=== PATIENT | female | born 1985 | race Caucasian/White ===

== ENCOUNTER 2016-07-27 15:51 | Emergency (ER) | payer OTHER ==
[2016-07-27 16:49] VITALS: BP 121/80
--- NOTE | 2016-07-27 18:33 | UC ---
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 FOR TWO WEEKS HAS HAS DIARRHEA WITH MUCUS IN STOOL. 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 - History of Current Complaint Chief Complaint: UCGI Stated Complaint: GI SYMPMTOMS Time Seen by Provider: 07/27/16 17:21 Hx Obtained From: Patient Onset/Duration: Gradual Onset, Lasting Weeks, Still Present Onset Severity: Moderate Current Severity: Moderate Pain Intensity: 0 Associated Signs & Symptoms: Positive: Diarrhea - Allergy/Home Medications Allergies/Adverse Reactions: Allergies Allergy/AdvReac Type Severity Reaction Status Date / Time No Known Allergies Allergy Verified 07/27/16 16:49 Home Medications: Home Medications Vortioxetine HBr [Trintellix] 07/27/16 [History] PMH/Surg Hx/FS Hx/Imm Hx Previously Healthy: Yes - Surgical History Surgical History: None - Family History Known Family History: Negative: Blood Disorder - Social History Occupation: Employed Full-time Lives: With Family Alcohol Use: Occasionally Substance Use Type: Prescribed Smoking Status (MU): Never Smoked Tobacco Review of Systems Constitutional: Negative Skin: Negative Eyes: Negative ENT: Negative Respiratory: Negative Cardiovascular: Negative Gastrointestinal: Diarrhea Genitourinary: Negative Motor: Negative Neurovascular: Negative Musculoskeletal: Negative Neurological: Negative Psychological: Negative All Other Systems Reviewed And Are Negative: Yes Physical Exam Triage Information Reviewed: Yes Appearance: Well-Appearing, No Pain Distress, Well-Nourished, Thin Vital Signs: Initial Vital Signs Temp 98.1 F 07/27/16 16:46 Pulse 72 07/27/16 16:46 Resp 18 07/27/16 16:46 BP 121/80 07/27/16 16:46 Pulse Ox 100 07/27/16 16:46 Vital Signs Reviewed: Yes Eye Exam: Normal Eyes: Positive: Conjunctiva Clear ENT Exam: Normal ENT: Positive: Normal ENT inspection, Hearing grossly normal, Pharynx normal, TMs normal Dental Exam: Normal Neck exam: Normal Neck: Positive: Supple, Nontender, No Lymphadenopathy Respiratory Exam: Normal Respiratory: Positive: Chest non-tender, Lungs clear, Normal breath sounds, No respiratory distress, No accessory muscle use Cardiovascular Exam: Normal Cardiovascular: Positive: RRR, No Murmur, Pulses Normal Abdominal Exam: Normal Abdomen Description: Positive: Nontender, No Organomegaly Musculoskeletal Exam: Normal Musculoskeletal: Positive: Strength Intact, ROM Intact Neurological Exam: Normal Psychological Exam: Normal Psychological: Positive: Normal Response To Family Skin Exam: Normal Course/Dx - Differential Dx - Multi-Symptom Differential Diagnoses: Other Provider Diagnoses: CHRONIC DIARRHEA. HISTORY OF C. DIFF Discharge - Discharge Plan Condition: Stable Disposition: HOME Patient Education Materials: Chronic Diarrhea (ED) Referrals: [facility] [Outside] Additional Instructions: HISTORY OF C. DIFF.
== END 2016-07-27 18:00 | disposition home or self-care (01) ==
LOC: UCEAST 15:51
DX: K52.9 Noninfective gastroenteritis and colitis, unspecified (principal); Z86.19 Personal history of other infectious and parasitic diseases
CPT/HCPCS: 87045; 87046; 87328; 87329; 87493; 87899; 99201; G0463